=== PATIENT | male | born 1985 | race Caucasian/White ===

== ENCOUNTER 2019-06-02 22:50 | Emergency (ER) | payer MEDICAID, OTHER ==
[~2019-06-02] VITALS: Ht 175.3 cm; Wt 70.0 kg
--- NOTE | 2019-06-03 00:34 | NUR ---
Assumed paitent care. Patient sitting on hospital bed using cell phone. No shoulder pain when stationary with affected arm. Good distal pulses.
[2019-06-03 01:02] VITALS: BP 117/73
[2019-06-26] MEDS ORDERED: NO HOME MEDS (09:59)
== END 2019-06-03 01:04 | disposition home or self-care (01) ==
LOC: ER 22:51
DX: S42.031A Displaced fracture of lateral end of right clavicle, initial encounter for closed fracture (principal); V29.49XA Motorcycle driver injured in collision with other motor vehicles in traffic accident, initial encounter; Y93.55 Activity, bike riding; Y92.89 Other specified places as the place of occurrence of the external cause; Y99.8 Other external cause status
CPT/HCPCS: 73030; 99283

== ENCOUNTER 2019-06-10 14:28 | Outpatient (CLI) | payer MEDICAID ==
[2019-06-10 14:30] VITALS: BP 114/68
[2019-06-26] MEDS ORDERED: NO HOME MEDS (09:59)
== END 2019-06-10 16:08 | disposition home or self-care (01) ==
LOC: ORTHO 14:28
PROVIDERS: ATTEND Orthopaedic Surgery
DX: S42.031D Displaced fracture of lateral end of right clavicle, subsequent encounter for fracture with routine healing (principal); V19.88XD Pedal cyclist (driver) (passenger) injured in other specified transport accidents, subsequent encounter
CPT/HCPCS: G0463

== ENCOUNTER → 2019-07-01 | Day surgery (SDC) | payer MEDICAID ==
[2019-06-26 10:43] LABS: BASOPHILS % (AUTO) 0.6 % (0-1); EOSINOPHILS # (AUTO) 0.2 X10'3 (0-0.9); MEAN CORPUSCULAR HGB CONC 32.8 g/dL (33.0-36.5); MEAN CORPUSCULAR VOLUME 91.5 FL (78-98); MEAN PLATELET VOLUME 7.2 FL (7.4-10.4); MONOCYTES # (AUTO) 0.8 X10'3 (0-0.9); MONOCYTES % (AUTO) 10.5 % (2-12); NEUTROPHILS # (AUTO) 4.2 X10'3 (1.8-7.7); NEUTROPHILS % (AUTO) 57.9 % (42-75); PRE OP HEMATOCRIT 40.6 % (42.0-52.0); PRE OP HEMOGLOBIN 13.3 g/dL (14.0-17.9); PRE OP PLATELET COUNT 313 X10'3 (140-440); RED BLOOD COUNT 4.44 X10'6 (4.70-6.10); RED CELL DISTRIBUTION WIDTH 14.1 % (11.5-14.5)
[~2019-07-01] VITALS: Ht 177.8 cm; Wt 63.5 kg
[2019-07-01] VITALS (8 sets, daily range): BP systolic 109–137; BP diastolic 71–86
[~2019-07-01] MED LIST: BUPIVAcaine/PF 2.5 mg/ml (0.25%) 30ml vial ONE; NO HOME MEDS; ROPIVAcaine 0.5% (5mg/ml) 30ml vial ONE; VANCOMYCIN INJ 1000 MG in NORMAL SALINE 250ml IV.SOLN IV ONE; bacitracin 15gm ointment TP ONE; ceFAZolin 1000mg inj ONE; cefazolin/dext.iso 2gm/100 ML IV ONE; cloNIDine hcl/PF 100mcg/ml inj ONE; famotidine 20mg tablet PO ONE; fentaNYL/PF 50MCG/1 ML 2ML syringe ONE; meperidine/PF 25mg/ml syringe IV PRN; midazolam 2 mg/2 ml injection ONE; morphine 4 MG/ML inj SYRINge IV PRN; ondansetron/PF 4mg/2ml inj IV PRN; proCHLORperazine 10 MG/2 ml inj IV PRN; propofol inj 20 ML IV ONE; ringers solution, lacted 1,000 ML IV SCH; sevoflurane 250ml liquid IH ONE
--- NOTE | 2019-07-01 13:48 | NUR ---
Pt woke up and coughed out LMA independently. Sats remain 93-96%. Still sleepy but easy to arouse. Resting comfortable and all other VS stable at this time.
--- NOTE | 2019-07-01 16:34 | NUR ---
Received from OR via thao, accompanied by Anesthesiologist Estuardo and report given by Anesthesiolgist. Pt VS stable, O2 sat 100%, LMA in place. Pt asleep not responding to questions. 20G left AC 200cc/hr IVF. Immobilizing brace in place, island dressing to right shoulder, clean dry and intact. MD states okay to remove LMA when pt wakes up.
--- NOTE | 2019-07-01 18:15 | NUR ---
Pt has ambulated and tolerated fluids and crackers without incident.
--- NOTE | 2019-07-01 18:24 | NUR ---
[place] script given to patient, education provided.
--- NOTE | 2019-07-01 18:24 | NUR ---
Pt discharged per orders in wheelchair to vehicle with no incident. Pt IV DC'd. Pt family present for DC information and all including pt state understanding of DC information. Pt still not able to feel fingers well. Received extensive information about block, when to start taking pain medicine and that when he does shower, he may dangle arm down with no abduction. Clothing placed back on patient. Pt knows that brace stays on 03/06 and to follow up in 2 weeks. States no pain throughout time in recovery room.
== END | disposition home or self-care (01) ==
LOC: PAS 12:59
PROVIDERS: ATTEND Orthopaedic Surgery
DX: S42.031A Displaced fracture of lateral end of right clavicle, initial encounter for closed fracture (principal); F17.210 Nicotine dependence, cigarettes, uncomplicated; Z91.030 Bee allergy status; Z72.89 Other problems related to lifestyle; Z79.899 Other long term (current) drug therapy; V87.8XXA Person injured in other specified noncollision transport accidents involving motor vehicle (traffic), initial encounter; Y93.89 Activity, other specified; Y92.89 Other specified places as the place of occurrence of the external cause; Y99.8 Other external cause status
CPT/HCPCS: 23515; 36415; 82948; 85025; C1713; J0690; J0735; J2250; J2704; J3010; J3370; J3490; A4215; A4565; A4618; A7000; J2795; J7120

== ENCOUNTER 2019-07-16 11:55 | Outpatient (CLI) | payer SELFPAY ==
[~2019-07-16 11:55] MED LIST changes: -BUPIVAcaine/PF 2.5 mg/ml (0.25%) 30ml vial ONE; -ROPIVAcaine 0.5% (5mg/ml) 30ml vial ONE; -VANCOMYCIN INJ 1000 MG in NORMAL SALINE 250ml IV.SOLN IV ONE; -bacitracin 15gm ointment TP ONE; -ceFAZolin 1000mg inj ONE; -cefazolin/dext.iso 2gm/100 ML IV ONE; -cloNIDine hcl/PF 100mcg/ml inj ONE; -famotidine 20mg tablet PO ONE; -fentaNYL/PF 50MCG/1 ML 2ML syringe ONE; -meperidine/PF 25mg/ml syringe IV PRN; -midazolam 2 mg/2 ml injection ONE; -morphine 4 MG/ML inj SYRINge IV PRN; -ondansetron/PF 4mg/2ml inj IV PRN; -proCHLORperazine 10 MG/2 ml inj IV PRN; -propofol inj 20 ML IV ONE; -ringers solution, lacted 1,000 ML IV SCH; -sevoflurane 250ml liquid IH ONE
== END 2019-07-16 13:00 | disposition home or self-care (01) ==
LOC: ORTHO 11:55
PROVIDERS: ATTEND Orthopaedic Surgery
DX: Z47.89 Encounter for other orthopedic aftercare (principal); Z98.890 Other specified postprocedural states; Z87.891 Personal history of nicotine dependence
CPT/HCPCS: G0463

== ENCOUNTER → 2019-08-13 | Outpatient (CLI) | payer MEDICAID | END | disposition home or self-care (01) | LOC: ORTHO 12:06 | PROVIDERS: ATTEND Orthopaedic Surgery | DX: S42.001D Fracture of unspecified part of right clavicle, subsequent encounter for fracture with routine healing (principal); X58.XXXD Exposure to other specified factors, subsequent encounter | CPT/HCPCS: 73000; G0463 ==

== ENCOUNTER 2023-06-08 15:38 | Emergency (ER) | payer MEDICAID ==
[~2023-06-08] VITALS: Ht 177.8 cm; Wt 50.8 kg
[2023-06-08 16:04] VITALS: BP 109/78; PULSE 88; RESP 18; TEMP 99.3; O2SAT 97
[2023-06-08] MEDS ORDERED: LIDOcaine 1% W/epiNEPHrine 1:100,000 20ml vial IJ ONE (16:25)
[2023-06-08] MEDS ORDERED: HYDR-3973 PO (17:25)
[2023-06-08] MEDS ORDERED: CEPH-585 PO (17:25)
[2023-06-08] MEDS ORDERED: SULF1TAB49 PO (17:25)
== END 2023-06-08 17:34 | disposition home or self-care (01) ==
LOC: ER 15:38
DX: L03.114 Cellulitis of left upper limb (principal); L02.414 Cutaneous abscess of left upper limb; F12.90 Cannabis use, unspecified, uncomplicated; Z79.2 Long term (current) use of antibiotics; Z79.899 Other long term (current) drug therapy
CPT/HCPCS: 10060; 99283; A6449